=== PATIENT | male | born 1995 | race Two or more races ===

== ENCOUNTER 2022-12-29 18:08 | Emergency (ER) | payer OTHER ==
[~2022-12-29] VITALS: Ht 177.8 cm; Wt 72.6 kg
[2022-12-29] MEDS ORDERED: DUI500 PO (19:32)
== END 2022-12-29 20:33 | disposition home or self-care (01) ==
LOC: ER 18:08
DX: H61.23 Impacted cerumen, bilateral (principal)

== ENCOUNTER 2023-02-25 16:48 | Emergency (ER) | payer OTHER ==
[~2023-02-25] VITALS: Ht 177.8 cm; Wt 74.8 kg
[~2023-02-25 16:48] MED LIST: DUI500 PO
== END 2023-02-25 19:22 | disposition home or self-care (01) ==
LOC: ER 16:48
DX: U07.1 COVID-19 (principal)